=== PATIENT | female | born 1960 | race Caucasian/White ===

== ENCOUNTER 2023-03-06 10:26 | Emergency (ER) | payer BC, OTHER ==
[2023-03-06 10:45] VITALS: BP 132/74; PULSE 65; RESP 20; TEMP 98.6; BMI 23.2
[2023-03-06 12:52] LABS: HEMATOCRIT 42.6 % (32.4-45.2); MCH 29.7 pg (25.7-33.7); MCHC 32.9 g/dl (32.0-36.0); MEAN CELL VOLUME 90.2 fl (80-96); MEAN PLT VOLUME 6.8 fl (7.5-11.1); PLATELET COUNT 299.7 10^3/uL (134-434); RBC 4.72 10^6/uL (3.60-5.2); RDW 13.6 % (11.6-15.6); WHITE BLOOD COUNT 6.4 10^3/uL (4.0-10.8)
[2023-03-06 13:03] LABS: ALBUMIN 4.2 g/dl (3.4-5.0); ALK PHOS 76 U/L (45-117); ANION GAP 9 MMOL/L (8-16); BLOOD UREA NITROGEN 13.9 mg/dl (7-18); CALCIUM 9.2 mg/dl (8.5-10.1); CHLORIDE 103 mmol/L (98-107); CO2 28 mmol/L (21-32); CREATININE 0.7 mg/dl (0.6-1.3); GLUCOSE,RANDOM 83 mg/dl (74-106); POTASSIUM 4.2 mmol/L (3.5-5.1); SGOT/AST 15.8 U/L (15-37); SGPT/ALT 9.2 U/L (7-52); SODIUM 140 mmol/L (136-145); TOT PROT 6.7 g/dl (6.4-8.2)
[2023-03-06 13:10] LABS: PLATELET ESTIMATE ADEQUATE
[2023-03-06 14:42] LABS: LIPASE 75 U/L (73-393)
[2023-03-06 14:47] LABS: BILIRUBIN,TOTAL 0.9 mg/dL (0.2-1)
== END 2023-03-06 15:32 | disposition home or self-care (01) ==
LOC: FER 10:26
DX: R10.32 Left lower quadrant pain (principal); R10.33 Periumbilical pain
CPT/HCPCS: 36415; 74177-TC; 80053; 81003; 81015; 83690; 84484; 85027; 87086; 99285-25; Q9967